=== PATIENT | male | born 1955 | race Caucasian/White ===

== ENCOUNTER 2017-02-24 08:00 | Emergency (ER) | payer BC ==
[~2017-02-24] VITALS: Ht 188 cm; Wt 111.4 kg
[2017-02-24 08:07] VITALS: BP 141/85
[2017-02-24] MEDS ORDERED: ATOR1TAB21 (08:10)
[2017-02-24] MEDS ORDERED: IBUP600T26 PO (08:10)
[2017-02-24] MEDS ORDERED: CYCL10TA PO (08:39)
[2017-02-24] MEDS ORDERED: NAPR500T2 PO (08:39)
== END 2017-02-24 08:48 | disposition home or self-care (01) ==
LOC: M ED 08:19
DX: S39.012A Strain of muscle, fascia and tendon of lower back, initial encounter (principal); X50.0XXA Overexertion from strenuous movement or load, initial encounter; Y92.89 Other specified places as the place of occurrence of the external cause; Y93.89 Activity, other specified; Y99.9 Unspecified external cause status; E78.00 Pure hypercholesterolemia, unspecified; Z79.899 Other long term (current) drug therapy

== ENCOUNTER → 2017-03-25 | Outpatient (CLI) | payer BC ==
[~2017-03-25] VITALS: Ht 188 cm; Wt 114.8 kg
[~2017-03-25] MED LIST: ATOR1TAB21; CYCL10TA PO; IBUP-1022 PO; LIDOCAINE 2% INJ 100 MG/5 ML SDV (FOR ANES.) As Ordered ONE; NAPR500T3 PO; NS 1,000 ML IV ONE; PROPOFOL 200 MG/20 ML VIAL As Ordered ONE
--- NOTE | 2017-03-25 10:10 | ROOR ---
Patient Name: Eben Maldonado Procedure Date: 03/25/2017 9:51 AM Date of : 1955 Age: 62 Room: [facility] Gender: Male Note Status: Finalized Procedure: Total Colonoscopy to Cecum Indications: Screening in patient at increased risk: Colorectal cancer in father 60 or older, High risk colon cancer surveillance: Personal history of colonic polyps Providers: Bran Goss MD Referring MD: Joel Mix MD Requesting Provider: Medicines: Monitored Anesthesia Care Complications: No immediate complications. Procedure: Pre-Anesthesia Assessment: - The heart rate, respiratory rate, oxygen saturations, blood pressure, adequacy of pulmonary ventilation, and response to care were monitored throughout the procedure. The Colonoscope was introduced through the anus and advanced to the cecum, identified by appendiceal orifice and ileocecal valve. The colonoscopy was performed without difficulty. The patient tolerated the procedure well. The quality of the bowel preparation was excellent. Findings: The perianal and digital rectal examinations were normal. Non-bleeding internal hemorrhoids were found during retroflexion. The hemorrhoids were small and Grade I (internal hemorrhoids that do not prolapse). Scattered small-mouthed diverticula were found in the recto-sigmoid colon, sigmoid colon and descending colon. The exam was otherwise without abnormality on direct and retroflexion views. Impression: - Non-bleeding internal hemorrhoids. - Diverticulosis in the recto-sigmoid colon, in the sigmoid colon and in the descending colon. - The examination was otherwise normal on direct and retroflexion views. - No specimens collected. - The exam was otherwise normal to the cecum. Recommendation: - Patient has a contact number available for emergencies. The signs and symptoms of potential delayed complications were discussed with the patient. Return to normal activities tomorrow. Written discharge instructions were provided to the patient. - High fiber diet. - Discharge patient to home. - Continue present medications. - Repeat colonoscopy in 5 years for screening purposes. - Return to referring physician. - The findings and recommendations were discussed with the patient's family. Bran Goss MD Bran Goss MD 03/25/2017 10:10:07 AM This report has been signed electronically. Number of Addenda: 0 Note Initiated On: 03/25/2017 9:51 AM Estimated Blood Loss: Estimated blood loss: none.
[2017-03-25 10:25] VITALS: BP 143/86
== END | disposition home or self-care (01) ==
LOC: M OPP 09:05
PROVIDERS: ATTEND Internal Medicine Gastroenterology
DX: Z12.11 Encounter for screening for malignant neoplasm of colon (principal); K64.0 First degree hemorrhoids; K57.30 Diverticulosis of large intestine without perforation or abscess without bleeding; Z80.0 Family history of malignant neoplasm of digestive organs; Z86.010 Personal history of colon polyps; E78.5 Hyperlipidemia, unspecified; Z79.899 Other long term (current) drug therapy

== ENCOUNTER → 2018-05-24 | Outpatient (CLI) | payer BC | LOC: M RAD 15:16 | DX: J32.0 Chronic maxillary sinusitis (principal) | CPT/HCPCS: 70486 ==

== ENCOUNTER → 2018-06-17 | Outpatient (CLI) | payer BC | LOC: M WUC 13:50 | DX: R05 Cough (principal) | CPT/HCPCS: 71046 ==

== ENCOUNTER → 2018-07-05 | Outpatient (CLI) | payer BC | LOC: M RAD 11:04 | DX: J32.0 Chronic maxillary sinusitis (principal) ==

== ENCOUNTER 2018-07-08 09:03 | Day surgery (SDC) | payer BC ==
[2018-07-08] MEDS ORDERED: MIDAZOLAM INJ 2 MG/2 ML VIAL (J2250) As Ordered (09:42)
[2018-07-08] MEDS ORDERED: LIDOCAINE 2% INJ 100 MG/5 ML SDV (FOR ANES.) As Ordered (09:42)
[2018-07-08] MEDS ORDERED: fentaNYL 250 MCG/5 ML INJECTION (J3010) As Ordered (09:42)
[2018-07-08] MEDS ORDERED: ROCURONIUM BROMIDE 50 MG/5 ML VIAL As Ordered ×2 (09:42→11:31)
[2018-07-08] MEDS ORDERED: PROPOFOL 200 MG/20 ML VIAL As Ordered ×2 (09:42→11:32)
[2018-07-08] MEDS ORDERED: LIDOCAINE W/EPINEPHRINE 1% 20ML VIAL As Ordered (10:41)
[2018-07-08] MEDS ORDERED: SODIUM CHLORIDE 0.9% NASAL GEL 15GM (AYR) As Ordered (10:42)
[2018-07-08] MEDS: dexameTHASONE 4 MG/ML 1ML VIAL (J1100) IV (11:20)
[2018-07-08] MEDS ORDERED: ePHEDrine SULFATE 25 MG/5 ML(5MG/ML) SYRINGE As Ordered (11:24)
[2018-07-08] MEDS ORDERED: HYDROmorphone HCL 2 MG/ML 1ML VIAL (J1170) As Ordered (11:32)
[2018-07-08] MEDS ORDERED: dexameTHASONE 4 MG/ML 1ML VIAL (J1100) As Ordered (11:32)
[2018-07-08] MEDS: EPINEPHrine 1MG/ML INJ 30ML MD-VIAL As Ordered (11:58)
[2018-07-08] MEDS: METHYLENE BLUE 0.5% (5MG/ML) 10 ML AMP (PROVAYBLUE)(Q9968 PER 1MG) As Ordered (11:59)
[2018-07-08] MEDS ORDERED: PHENYLephrine HCL 500 MCG/5 ML (100MCG/ML) SYRINGE (J2370) As Ordered (12:03)
[2018-07-08] MEDS ORDERED: SUGAMMADEX SODIUM 500 MG/5 ML VIAL (BRIDION) As Ordered (12:20)
[2018-07-08] MEDS ORDERED: ONDANSETRON 4MG/2ML VIAL (J2405) As Ordered (12:20)
[2018-07-08] MEDS ORDERED: METOCLOPRAMIDE INJ 10MG/2ML VIAL (J2765) IV (13:15)
[2018-07-08] MEDS ORDERED: ONDANSETRON 4MG/2ML VIAL (J2405) IV (13:15)
[2018-07-08] MEDS ORDERED: LR 1,000 ML IV (13:15)
[2018-07-08] MEDS ORDERED: fentaNYL 100 MCG/2 ML INJECTION (J3010) IV (13:15)
[2018-07-08] MEDS: PERCOCET 5MG/325MG TAB PO (13:36)
== END 2018-07-08 14:45 | disposition home or self-care (01) ==
LOC: M SDC 14:45
DX: J32.0 Chronic maxillary sinusitis (principal); J32.2 Chronic ethmoidal sinusitis; M54.5 Low back pain; E78.00 Pure hypercholesterolemia, unspecified; Z86.010 Personal history of colon polyps
CPT/HCPCS: 31255

== ENCOUNTER → 2020-09-11 | Outpatient (CLI) | payer SELFPAY ==
[~2020-09-11] MED LIST changes: -ATOR1TAB21; +ATOR1TAB21 PO; +CYCL-707 PO; -CYCL10TA PO; -LIDOCAINE 2% INJ 100 MG/5 ML SDV (FOR ANES.) As Ordered ONE; +NAPR-885 PO; -NAPR500T3 PO; -NS 1,000 ML IV ONE; -PROPOFOL 200 MG/20 ML VIAL As Ordered ONE
== END ==
LOC: M LABSMTC 10:10
PROVIDERS: ATTEND Pediatrics
DX: Z20.828 Contact with and (suspected) exposure to other viral communicable diseases (principal)

== ENCOUNTER 2021-09-23 13:47 | Emergency (ER) | payer MEDICARE ==
[~2021-09-23] VITALS: Ht 188 cm; Wt 114.3 kg
[2021-09-23] MEDS ORDERED: ISOVUE-370 76% 100ML VIAL As Ordered ONE (14:44)
[2021-09-23 16:03] VITALS: BP 145/91
== END 2021-09-23 16:03 | disposition home or self-care (01) ==
LOC: M ED 13:47
DX: R07.9 Chest pain, unspecified (principal); E78.5 Hyperlipidemia, unspecified; Z79.899 Other long term (current) drug therapy
CPT/HCPCS: 71275; 99284; Q9967

== ENCOUNTER → 2022-04-06 | Outpatient (CLI) | payer MEDICARE | LOC: M LABSMTC 10:10 | PROVIDERS: ATTEND Anesthesiology | DX: Z11.52 Encounter for screening for COVID-19 (principal) ==

== ENCOUNTER 2022-04-09 08:36 | Day surgery (SDC) | payer MEDICARE ==
[~2022-04-09] VITALS: Ht 188 cm; Wt 110.7 kg
[~2022-04-09 08:36] MED LIST changes: +LIDOCAINE 2% 100MG/5ML SDV (FOR ANES.) As Ordered ONE; +NS 1,000 ML IV ONE; +propofoL 200 MG/20 ML VIAL As Ordered ONE
[2022-04-09 10:15] VITALS: BP 141/79
== END 2022-04-09 10:22 | disposition home or self-care (01) ==
LOC: M OPP 08:36
PROVIDERS: ATTEND Internal Medicine Gastroenterology
DX: Z12.11 Encounter for screening for malignant neoplasm of colon (principal); Z86.010 Personal history of colon polyps; K57.30 Diverticulosis of large intestine without perforation or abscess without bleeding; K64.0 First degree hemorrhoids; E78.00 Pure hypercholesterolemia, unspecified; Z79.02 Long term (current) use of antithrombotics/antiplatelets; Z87.438 Personal history of other diseases of male genital organs

== ENCOUNTER → 2022-07-01 | Outpatient (CLI) | payer MEDICARE ==
[~2022-07-01] MED LIST changes: -LIDOCAINE 2% 100MG/5ML SDV (FOR ANES.) As Ordered ONE; -NS 1,000 ML IV ONE; -propofoL 200 MG/20 ML VIAL As Ordered ONE
== END ==
LOC: M WUC 08:53
PROVIDERS: ATTEND Family Medicine
DX: R05.9 Cough, unspecified (principal)

== ENCOUNTER 2023-12-07 19:38 | Emergency (ER) | payer MEDICARE, OTHER ==
[~2023-12-07] VITALS: Ht 188 cm; Wt 114.9 kg
[2023-12-08] MEDS: LIDOCAINE 1% MDV 20ML VIAL SC ONE (00:17)
[2023-12-08] MEDS ORDERED: AMOX875T2 PO (01:25)
[2023-12-08] MEDS: AUGMENTIN 875 MG TAB PO ONE (01:54)
[2023-12-08 01:56] VITALS: BP 156/97; TEMP 97.6; O2SAT 97
== END 2023-12-08 01:59 | disposition home or self-care (01) ==
LOC: M ED 19:38
DX: S62.632B Displaced fracture of distal phalanx of right middle finger, initial encounter for open fracture (principal); W54.0XXA Bitten by dog, initial encounter; Z79.02 Long term (current) use of antithrombotics/antiplatelets; Z79.2 Long term (current) use of antibiotics; Y92.009 Unspecified place in unspecified non-institutional (private) residence as the place of occurrence of the external cause; Y93.89 Activity, other specified; Y99.9 Unspecified external cause status
CPT/HCPCS: 73140; 99283; J0665

== ENCOUNTER → 2023-12-29 | Outpatient (CLI) | payer MEDICARE, OTHER ==
[~2023-12-29] MED LIST changes: +AMOX875T2 PO
== END ==
LOC: M SOG 08:27
PROVIDERS: ATTEND Physician Assistant
DX: S62.632A Displaced fracture of distal phalanx of right middle finger, initial encounter for closed fracture (principal); W18.30XA Fall on same level, unspecified, initial encounter; Y92.009 Unspecified place in unspecified non-institutional (private) residence as the place of occurrence of the external cause

== ENCOUNTER → 2024-02-16 | Outpatient (CLI) | payer MEDICARE, OTHER | LOC: M SOG 07:56 | PROVIDERS: ATTEND Physician Assistant | DX: S62.632A Displaced fracture of distal phalanx of right middle finger, initial encounter for closed fracture (principal); W18.30XA Fall on same level, unspecified, initial encounter; Y92.009 Unspecified place in unspecified non-institutional (private) residence as the place of occurrence of the external cause ==

== ENCOUNTER 2024-08-14 11:00 | Emergency (ER) | payer MEDICARE, OTHER ==
[~2024-08-14] VITALS: Ht 188 cm; Wt 113.9 kg
[2024-08-14] MEDS ORDERED: PSEU30TA87 PO (11:10)
[2024-08-14] MEDS ORDERED: MUCI1TAB16 PO (11:10)
[2024-08-14] MEDS ORDERED: ACET-907 PO (11:10)
[2024-08-14] MEDS: BENZONATATE 100MG CAPSULE PO ONE (12:20)
[2024-08-14] MEDS ORDERED: BENZ200C70 PO (13:17)
[2024-08-14 13:25] VITALS: BP 135/94; TEMP 96.9; O2SAT 96
== END 2024-08-14 13:26 | disposition home or self-care (01) ==
LOC: M ED 11:00
DX: J20.5 Acute bronchitis due to respiratory syncytial virus (principal); R05.9 Cough, unspecified; E78.5 Hyperlipidemia, unspecified; Z79.1 Long term (current) use of non-steroidal anti-inflammatories (NSAID); Z79.2 Long term (current) use of antibiotics; Z79.899 Other long term (current) drug therapy

== ENCOUNTER → 2025-08-23 | Outpatient (CLI) | payer MEDICARE ==
[~2025-08-23] MED LIST changes: +ACET-907 PO; +BENZ200C70 PO; -IBUP-1022 PO; +IBUP600T42 PO; +MUCI1TAB16 PO; +PSEU30TA87 PO
== END ==
LOC: M WUC 13:35
PROVIDERS: ATTEND Family Medicine
DX: R05.9 Cough, unspecified (principal)